=== PATIENT | female | born 1965 | race Caucasian/White ===

== ENCOUNTER 2021-12-18 10:50 | Emergency (ER) | payer OTHER ==
[2021-12-18 12:04] LABS: HEMOGLOBIN 12.9 gm/dl (12.3-15.3); RED BLOOD COUNT 4.92 M/UL (4.00-5.10)
[2021-12-18 12:34] LABS: BUN/CREATININE RATIO 12 (0-10)
[2021-12-18] MEDS ORDERED: CARAFATE1 GM PO (17:29)
[2021-12-18] MEDS ORDERED: OMEPRAZOLE40 MG PO (17:29)
[2021-12-18] MEDS ORDERED: REGLAN5 MG PO (17:31)
== END 2021-12-18 18:00 | disposition home or self-care (01) ==
LOC: ER1 10:50
PROVIDERS: Physician Assistant
DX: K21.9 Gastro-esophageal reflux disease without esophagitis (principal); I10 Essential (primary) hypertension
CPT/HCPCS: 71045; 71275; 76705; 80053; 81001; 82550; 82553; 83690; 84484; 84703; 85025; 85379; 85610; 85730; 93005; 96374; 96375; 99284; J2405; J2765; Q9967